=== PATIENT | female | born 1975 ===

== ENCOUNTER 2022-03-03 19:04 | Emergency (ER) | payer OTHER ==
[~2022-03-03] VITALS: Ht 167.6 cm; Wt 63.5 kg
[2022-03-04] MEDS ORDERED: KETO10TA2 PO (04:27)
[2022-03-04] MEDS ORDERED: CIPRO500 MG PO (04:27)
== END 2022-03-04 04:43 ==
LOC: ER 19:04
DX: R10.31 Right lower quadrant pain (principal)